=== PATIENT | female | born 1990 | race Caucasian/White ===

== ENCOUNTER 2019-11-19 21:54 | Observation (INO) | payer BC, SELFPAY ==
[2019-11-19 22:31] VITALS: BP 121/66; PULSE 89
[2019-11-19 22:46] VITALS: BP 112/72; PULSE 92
[2019-11-19 23:01] VITALS: BP 117/66; PULSE 93
[2019-11-19 23:16] VITALS: BP 125/73; PULSE 94
[2019-11-19 23:48] VITALS: BP 128/66; PULSE 84
[2019-11-20 00:01] VITALS: BP 125/70; PULSE 84
[2019-11-20 00:02] LABS: Add Urine Microscopic? YES; Appearance Urine Cloudy (Clear); Bacteria Urine 4+ /hpf; Bilirubin Urine Negative (Negative); Blood Urine Negative (Negative); Color Urine Yellow (Yellow); Glucose Urine UA Negative (Negative); Ketones Urine Trace mg/dL (Negative); Leukocyte Esterase Ur 2+ LEU/UL (NEGATIVE); Mucus Urine Rare /lpf; Nitrate Urine Negative (Negative); Protein Urine Negative (Negative); Specific Grav Ur 1.015 (1.001-1.035); Squamous Epithelial Cell Urine Many /hpf (Few); Urobilinogen Urine Negative mg/dL (<2.0)
--- NOTE | 2019-11-20 01:11 | PC.NURSE ---
pt came in c/o elevated BP at home of 160s/130s. c/o dull headache, no swelling, no blurry vision, no abdominal pain, slight nausea, slight rectal pressure. pt takes labetalol 200mg BID with last dose taken at [address] Saravia @[phone]- discussed pt sxs, discussed UA results, discussed FHT. discussed BP readings here. Per Dr. Saravia- ok to d/c home, continue current meds and f/u with Dr. Lal in office on Saturday or sooner if concerns.
--- NOTE | 2019-12-22 18:03 | P.PNOB_ITS ---
OB - Triage/Final Diagnosis Evaluation Laboratory results: Laboratory Tests 11/19/19 23:28 Urine Color Yellow Urine Appearance Cloudy H Urine pH 6.0 Ur Specific Mcdonald 1.015 Urine Protein Negative Urine Glucose (UA) Negative Urine Ketones Trace Ur Blood (Man) Negative Urine Nitrate Negative Urine Bilirubin Negative Urine Urobilinogen Negative Ur Leukocyte Esterase 2+ H Urine RBC 3-5 H Urine WBC 10-15 H Ur Squamous Epith Cells Many H Urine Bacteria 4+ H Urine Mucus Rare Final Diagnosis (1) HTN (hypertension): Code(s): I10 - Essential (primary) hypertension Status: Acute
== END 2019-11-20 00:38 | disposition home or self-care (01) ==
PROVIDERS: Admitting Provider Obstetrics & Gynecology; PCP Family Medicine; Visit Provider Obstetrics & Gynecology
DX: O16.3 Unspecified maternal hypertension, third trimester (principal); Z3A.38 38 weeks gestation of pregnancy
CPT/HCPCS: 59025; 81001; G0378; G0379

== ENCOUNTER 2019-11-24 07:23 | Outpatient (RCR) | payer BC, SELFPAY ==
[2019-10-27 08:17] VITALS: BP 142/85; PULSE 90
[2019-10-30 08:01] VITALS: BP 133/75; PULSE 91
[2019-11-03 07:48] VITALS: BP 134/80; PULSE 89
[2019-11-06 13:38] VITALS: BP 131/77; PULSE 87
[2019-11-10 07:56] VITALS: BP 139/86; PULSE 89
[2019-11-13 07:59] VITALS: BP 134/82; PULSE 85
[2019-11-17 10:55] VITALS: BP 130/81
[2019-11-24 07:48] VITALS: BP 135/82; PULSE 106
== END 2019-11-30 07:59 | disposition home or self-care (01) ==
LOC: ANHOBOP 07:23
PROVIDERS: PCP Family Medicine; Visit Provider Student in an Organized Health Care Education/Training Program
DX: O16.3 Unspecified maternal hypertension, third trimester (principal); Z3A.36 36 weeks gestation of pregnancy; O26.893 Other specified pregnancy related conditions, third trimester; R03.0 Elevated blood-pressure reading, without diagnosis of hypertension; Z3A.37 37 weeks gestation of pregnancy; Z3A.38 38 weeks gestation of pregnancy; Z3A.40 40 weeks gestation of pregnancy
CPT/HCPCS: 59025

== ENCOUNTER 2019-11-26 11:25 | Outpatient (CLI) | payer BC, SELFPAY ==
[2019-11-26 12:01] LABS: Hematocrit 36.5 % (37.0-47.0); Hemoglobin 11.7 g/dL (12.0-15.0); Mean Corpuscular HGB Conc 32.1 g/dl (32-36); Mean Corpuscular Volume 81.1 fl (80-100); Platelet Count Result 240 k/mm3 (150-375); Red Cell Distribution Width 14.1 % (11.5-14.5)
[2019-11-27 08:44] LABS: Rapid Plasma Reagin Non-Reactive (NonReactive)
== END 2019-11-26 11:26 | disposition home or self-care (01) ==
LOC: ANHLAB 11:27
PROVIDERS: PCP Family Medicine; Visit Provider Student in an Organized Health Care Education/Training Program
DX: Z01.818 Encounter for other preprocedural examination (principal)
CPT/HCPCS: 36415; 85027; 86592; 86850; 86900; 86901

== ENCOUNTER 2019-11-27 06:59 | Inpatient (IN) | payer BC, SELFPAY ==
[2019-11-27] VITALS (41 sets, daily range): BP systolic 115–157; BP diastolic 65–92; PULSE 71–103; RESP 16–18; TEMP 36.2–38; O2SAT 96–100; BMI 43.7
[2019-11-27] MEDS: LACTATED RINGERS 1,000 ML 999 ML IV CONT (08:00)
--- NOTE | 2019-11-27 08:13 | WPDANESEPPF ---
Anes - Initial Pre Proc Eval Procedure: Operation Date: 11/27/19 09:00 Proposed Procedures p Section - Herberth Lal MD Date/Time: 11/27/19 08:13 Surgeon: Herberth Lal MD Pre Op Diagnosis: C/S, macrosomia, hypertension Patient Data Age: 29 Gender: F Height: 1.68 m Weight: 123 kg Last Vital Signs Pulse 89 11/27/19 07:29 BP 115/68 11/27/19 07:29 Allergies Allergy/AdvReac Type Severity Reaction Status Date / Time No Known Allergies Allergy Unverified 09/24/18 15:42 Home Medications Medication Instructions Recorded Confirmed Type PNV cmb#95-ferrous fumarate-FA 1 tablet PO DAILY 11/06/19 11/06/19 History [] aspirin 81 mg PO BID 11/06/19 11/06/19 History ergocalciferol (vitamin D2) 50,000 unit PO WEEKLY 11/06/19 11/06/19 History [Vitamin D2] labetalol 200 mg PO Q12H 11/06/19 11/06/19 History metformin 1,000 mg PO BID 11/06/19 11/06/19 History Patient hx anesthesia problems: none Family hx anesthesia problems: none PMFSH Past Medical History Medical History (Updated 11/27/19 @ 08:14 by Dima Corona MD) Diabetes HTN (hypertension) Morbid obesity with BMI of 40.0-44.9, adult Family History Family History (Updated 11/06/19 @ 13:32 by Radha Rodriguez RN) Father Lung cancer Social History Social History Substance use: never Gender identity (if verbalized by the patient): Female Spiritual care concerns: No Anes - Eval Final PreProcedure Day of Procedure 11/27/19 08:13 Patient weight: morbidly obese Heart: regular rate and rhythm Lungs: clear to auscultation and normal air movement Airway: Mallampati scale class II Neurological: alert and oriented Last oral intake: >/= 8 hours ASA classification: III Emergent: no Anesthetic plan: proceed Anesthesia type and monitoring: general GIVS Informed Consent: The patient's anesthetic plan and its attendant risks and benefits were discussed with the patient/family/POA. Questions were solicited and answers provided to the satisfaction of the patient/family/POA.
--- NOTE | 2019-11-27 08:27 | PM.IMHP ---
H&P: HPI History of Present Illness Chief complaint: C/S, macrosomia, hypertension Narrative: Pricilla Shaffer is a 29 year old female at 39w0d who present for primary section. This is a IVF . has been complicated by CHTN, obesity, PCOS. EFW has been >99% throughout her . She has been receiving serial growth US given her CHTN. EFW earlier this week was 4900g. She endoreses good FM. She denies any regular contractions, vaginal bleeding or LOF. Review of Systems Cardiovascular: Cardiovascular: Denies chest pain, Denies leg edema, Denies palpitations, Denies dyspnea and Denies dyspnea on exertion Respiratory: Respiratory: Denies cough, Denies dyspnea and Denies dyspnea on exertion Gastrointestinal: Gastrointestinal: Denies abdominal pain, Denies constipation, Denies diarrhea, Denies nausea and Denies vomiting Genitourinary: Genitourinary: Denies hematuria, Denies urinary frequency, Denies dysuria, Denies pelvic pain, Denies urinary incontinence and Denies vaginal discharge Neurologic: Reports system reviewed and no additional complaints, except as documented Psychiatric: Psychiatric: Reports no additional psychiatric complaints Endocrine: Endocrine: Denies palpitations PMFSH Past Medical History Medical History (Updated 11/27/19 @ 08:31 by Herberth Lal MD) Diabetes HTN (hypertension) Morbid obesity with BMI of 40.0-44.9, adult Family History Family History (Updated 11/06/19 @ 13:32 by Radha Rodriguez RN) Father Lung cancer Social History Social History Substance use: never Gender identity (if verbalized by the patient): Female Spiritual care concerns: No Meds Home Medications and Allergies Home Medications Medication Instructions Recorded Confirmed Type PNV cmb#95-ferrous fumarate-FA 1 tablet PO DAILY 11/06/19 11/06/19 History [] aspirin 81 mg PO BID 11/06/19 11/06/19 History ergocalciferol (vitamin D2) 50,000 unit PO WEEKLY 11/06/19 11/06/19 History [Vitamin D2] labetalol 200 mg PO Q12H 11/06/19 11/06/19 History metformin 1,000 mg PO BID 11/06/19 11/06/19 History Allergies Allergy/AdvReac Type Severity Reaction Status Date / Time No Known Allergies Allergy Unverified 09/24/18 15:42 Vital Signs Vital Signs - 24 hr 11/27/19 07:29 Pulse Rate 89 Blood Pressure 115/68 Exam Const: General: no acute distress Eyes: EOM: EOMs intact bilaterally Neck: Neck: supple Thyroid: thyroid normal Chest: Breast/axilla inspection: normal inspection of the breasts Breast/axilla palpation: normal palpation of the breasts, normal palpation of the axillae and no axillary lymphadenopathy Resp: Effort & Inspection: normal respiratory effort Auscultation: clear to auscultation bilaterally Cardio: Rate: regular rate Rhythm: regular rhythm GI: Inspection: non-distended GI Palp: Yes Soft to palpation, No Tenderness to palpation present (GI) and No Guarding due to palpation present (GI) Auscultation: normal bowel sounds Other: Gravid, fundal height equal to dates : General: No bladder normal to palpation External Female Exam: normal external appearance Speculum Exam - Vagina: normal vaginal discharge and No vaginal bleeding Speculum Exam - Cervix: nontender Bimanual exam- vagina & uterus: No bladder normal to palpation and No Cervical tenderness present OB/external & speculum: No vaginal bleeding Skin: General skin exam: normal color and no rashes or lesions noted Neuro: Cognition (Neuro): normal cognition Speech: normal speech Extrem: General: normal to inspection and no edema Psych: Mental Status: mental status grossly normal Affect: normal affect Assessment and Plan Assessment and plan (1) Morbid obesity with BMI of 40.0-44.9, adult: Code(s): E66.01 - Morbid (severe) obesity due to excess calories; Z68.41 - Body mass index (BMI) 40.0-44.9, adult Status: Acute Assessment and Plan: given obesity
[2019-11-27] MEDS: ONDANSETRON INJ 4 MG/2 ML VIAL IV PUSH (08:49)
[2019-11-27] MEDS: LACTATED RINGERS 250 ML 999 ML IVPB (08:51)
--- NOTE | 2019-11-27 08:59 | LDADM ---
This patient, Pricilla Shaffer, was admitted to Labor/Delivery/Recovery 119 on 11/27/19 at 06:59. Plans for planned section, pain management and were discussed with patient. Patient/family oriented to hospital policies and general routines including ID bracelet, bed and alarms, visiting hours, pain management, procedures, bathroom and other care routines, personal items, smoking policy, room service/diet and guest tray routines, security routines, and visiting hours. Patient/Family are encouraged to report perceived risks to care and to ask questions if they do not understand what they are told or what they should do. See OBIX for further documentation.
[2019-11-27] MEDS: ceFAZolin 3 GM/D5W 100 ML 100 ML IVPB (09:20)
[2019-11-27 10:02] LABS: HIV 1/2 Ab P24 Ag Result Negative (Negative)
--- NOTE | 2019-11-27 10:17 | PM.PROC ---
Procedure Note - Detailed Date of procedure: 11/27/19 Pre-op diagnosis: C/S, macrosomia, hypertension raza IUP @ 39w0d CHTN on medications large for gestational age fetus obesity Post-op diagnosis: same Procedure performed: low transverse section Description of procedure: The patient was taken to the operating room where epidural anesthesia was found to be adequate. She was then prepped and draped in the usual sterile fashion in the dorsal supine position with a leftward tilt. A Pfannenstiel skin incision was then made with the scalpel and carried through to the underlying layer of fascia. The fascia was then incised in the midline and the incision extended laterally with the Hunt scissors. The superior aspect of the fascia was then grasped with the Leonides clamps, elevated, and the underlying rectus muscles dissected off bluntly and sharply. Attention was then turned to the inferior aspect of this incision which, in a similar fashion, was grasped, tented up with the Leonides clamps, and the rectus muscles dissected off both bluntly and sharply. The rectus muscles were then in the midline, and the peritoneum identified, tented up, and entered sharply with the Metzenbaum scissors. The peritoneal incision was then extended superiorly and inferiorly with good visualization of the bladder. The bladder blade was then inserted and the vesicouterine peritoneum identified, grasped with the pick-ups and entered sharply with the Metzenbaum scissors. This incision was then extended laterally and the bladder flap created digitally. The bladder blade was then reinserted and the lower uterine segment incised in a low, transverse fashion with the scalpel. The uterine incision was then extended superiorly and inferiorly. The bladder blade was removed and the infant?s head delivered atraumatically. The remainder of the was delivered atraumatically. The cord was clamped and cut. The was handed off to the waiting pediatricians (staff). Cord gasses were sent. The placenta was then removed manually, the uterus exteriorized, and cleared of all clots and debris. The uterine incision was repaired with 0 monocryl in a running fashion. A second imbricating layer of 0-monocryl suture was used. The uterus was returned to the abdomen. The uterus was then reinspected to ensure hemostasis as were all subfascial tissues. The peritoneum was re-approximated with 3-0 vicryl in a running fashion. The fascia was reapproximated with 0 vicryl in a running fashion. The subcutaneous tissue was reapproximated using 3-0 Vicryl in a running fashion. The skin was closed with 4-0 vicryl. JENY vacuum dressing was placed over the incision. The patient tolerated the procedure well. Sponge, lap and needle counts were correct times three. The patient was taken to the recovery room in stable condition. Anesthesia: spinal Surgeon: Herberth Lal MD Estimated blood loss (mL): 685 IV fluids (mL): 1,000 Urine output (mL): 150 Drains: No Packing: No Pathology: none sent Complications: No immediate complications Condition: stable Disposition: floor ( ) Findings: normal apperaing uterus, bilateral fallopian tubes and ovaries
[2019-11-27] MEDS: IBUPROFEN 600 MG TABLET PO ×2 (12:05→18:22)
--- NOTE | 2019-11-27 12:30 | PC.NURSE ---
Consulted with patient, mother reports infant eagerly latched and nursed for first feeding. Reviewed infant feeding cues, frequencies, duration of feedings, feeding elimination flow sheet, and signs of adequate intake. Demonstrated stimulation techniques to wake infant for feeding. Assisted with infant to breast. Reviewed positioning/alignment in football, holding breast in C hold and guided asymmetrical latch on. Discussed rational for each. Infant was able to latch correctly. Infant nursed eagerly, with steady draws and occasional swallowing noted. Reviewed signs of a correct latch, effective nursing and suck swallow ratio. Infant was able to maintain latch without discomfort to mother. Nipple care reviewed. Suggested to continue to hold breast during entire feeding to assist with maintaining deep latch and to stimulate to keep awake and nursing. Instructed mother to call out for RN assistance if she is unable to latch infant for feeding or she has discomfort with nursing. Instructed feeding should be initiated three hours from start of last feeding or if feeding cues are noted before. Mother voiced understanding of information shared.
--- NOTE | 2019-11-27 14:22 | PC.NURSE ---
Patient transferred to post room #288 via stretcher. Support person present. Oriented to unit, room, information board, rooming in, admission packet and security measures. Patient verbalizes understanding.
[2019-11-27] MEDS: DEXTROSE 5%/0.45% SOD CHL 1,000 ML 125 ML IV CONT (16:29)
[2019-11-27] MEDS: metFORMIN HCL 500 MG TABLET 1000 MG PO (18:22)
[2019-11-27] MEDS: LABETALOL HCL 100 MG TABLET 200 MG PO (20:48)
[2019-11-27] MEDS: LORATADINE 10 MG TABLET PO (20:52)
--- NOTE | 2019-11-27 22:20 | PC.NURSE ---
2100- Pt doing well. Up in chair with no complaints. 2214- Pt calls out because she's not feeling well. States she feels like she's going to get sick, then proceeds to pass out. Color is pale. Used ammonia to regain consciousness. Pt sweaty. Vitals done, stable. BS done-96. Good urine output. 2229- Got patient back to bed. Fundus firm at U. Moderate vaginal bleeding. Abdominal dressing dry and intact. No complaints of abdominal tenderness upon palpation. Lung sounds clear throughout. Will continue to monitor vital signs.
[2019-11-28] MEDS: IBUPROFEN 600 MG TABLET PO ×3 (04:19→20:35)
[2019-11-28 04:30] VITALS: BP 123/69; PULSE 92; RESP 16; TEMP 36.5; O2SAT 98
[2019-11-28 04:50] LABS: Glucose Point of Care 96 (65-105)
[2019-11-28 05:20] LABS: Basophils Percent Auto 0.3 % (0.2-1.2); Eosinophils Percent Auto 0.3 % (0-4.4); Hematocrit 27.2 % (37.0-47.0); Hemoglobin 8.8 g/dL (12.0-15.0); Immature Granulocyte Absolute 0.04 K/mm3 (0.00-0.031); Immature Granulocyte Percent A 0.3 % (0-0.5); Lymphocytes Absolute Auto 1.11 K/mm3 (0.9-3.2); Lymphocytes Percent Auto 9.5 % (18.3-44.2); Mean Corpuscular HGB Conc 32.4 g/dl (32-36); Mean Corpuscular Hemoglobin 26.3 pg (26-34); Mean Corpuscular Volume 81.4 fl (80-100); Mean Platelet Volume 11.6 fl (7.4-10.4); Monocytes Absolute Auto 0.7 K/mm3 (0.1-0.6); Monocytes Percent Auto 5.6 % (2.6-8.5); Neutrophils Absolute Auto 9.8 K/mm3 (1.3-6.7); Platelet Count Result 221 k/mm3 (150-375); Red Blood Count 3.34 M/mm3 (4.2-5.4); Red Cell Distribution Width 14.4 % (11.5-14.5); White Blood Count 11.7 K/mm3 (4.5-10.0)
[2019-11-28 07:30] VITALS: BP 121/78; PULSE 89; RESP 18; TEMP 36.9; O2SAT 98
[2019-11-28] MEDS: DOCUSATE SODIUM 100 MG CAPSULE PO ×2 (07:36→16:24)
[2019-11-28] MEDS: POLYSACCHARIDE IRON COMPLEX 150 MG CAPSULE PO ×2 (07:36→16:24)
[2019-11-28] MEDS: MULTIVIT/MIN/PREN/FOL AC/IRON TABLET 1 TAB PO (07:36)
[2019-11-28 07:38] VITALS: PULSE 97
[2019-11-28] MEDS: LABETALOL HCL 100 MG TABLET 200 MG PO ×2 (07:38→20:36)
[2019-11-28] MEDS: metFORMIN HCL 500 MG TABLET 1000 MG PO ×2 (07:38→18:50)
--- NOTE | 2019-11-28 08:22 | WPDANLDNPN2 ---
Anes-Prog Note L&D-Neuraxial Date/Time: 11/28/19 08:22 Neuraxial medications: intrathecal PF morphine Opiod-related complaints: none Patient feedback: Patient satisfied with post-operative pain management.
--- NOTE | 2019-11-28 08:22 | WPDANLDPN2 ---
Anes-Prog Note L&D Date/Time: 11/28/19 08:22 Comfortable throughout: section Neuraxial method: spinal Epidural/Spinal procedure site: clean & non-tender Neuro status: Neuro function grossly intact. Cardiovascular status: normal Respiratory status: normal Airway patency: baseline Mental status: baseline Post-Op hydration status: normal Vital Signs: Last Vital Signs Temp 36.5 C 11/28/19 04:30 Pulse 97 11/28/19 07:38 Resp 16 11/28/19 04:30 BP 123/69 11/28/19 04:30 Pulse Ox 98 11/28/19 04:30 I/O: Intake & Output 11/27/19 11/28/19 11/28/19 23:59 07:59 15:59 Output Total 2049 Balance -2049 Post-procedural complaints: none Patient feedback: Patient satisfied with anesthetic care.
--- NOTE | 2019-11-28 08:49 | P.PNOB_ITS ---
OB - PN: Subj Subjective Date/time seen: 11/28/19 08:49 Patient comments: no complaints and pain well controlled baby status: doing well and nursing well OB - PN: Obj Data Labs CBC & Chem 7: 11/28/19 04:28 Labs: Laboratory Results - last 24 hr 11/27/19 11/27/19 11/28/19 07:49 22:29 04:28 WBC 11.7 H RBC 3.34 L Hgb 8.8 L Hct 27.2 L MCV 81.4 MCH 26.3 MCHC 32.4 RDW 14.4 Plt Count 221 MPV 11.6 H Immature Gran % (Auto) 0.3 Neut % (Auto) 84.0 H Lymph % (Auto) 9.5 L Free[place] % (Auto) 5.6 Eos % (Auto) 0.3 Baso % (Auto) 0.3 Lymph # (Auto) 1.11 Freeborn # (Auto) 0.7 H Eos # (Auto) 0.0 Baso # (Auto) 0.0 Abs Immat Gran (auto) 0.04 H Absolute Neuts (auto) 9.8 H Absolute Nucleated RBC 0.0 Nucleated RBC % 0.0 POC Capillary Glucose 96 HIV 1&2 Ab/P24 Ag 4thGn Negative OB - PN A/P Plan day: 1 Plan: routine care Time Spent With Patient Time: Total time spent is greater than 50% in coordination of care (as documented) at patient's floor/unit and/or counseling patient: Time with patient: less than 15 minutes Review of Systems Review of Systems: All systems reviewed & are unremarkable except as noted in HPI and below Exam Const: General: no acute distress Eyes: General: appearance normal, both eyes and all related structures Neck: Neck: supple and no JVD Thyroid: thyroid normal Resp: Effort & Inspection: normal respiratory effort Auscultation: clear to auscultation bilaterally Cardio: Rate: regular rate Rhythm: regular rhythm GI: Inspection: non-distended GI Palp: Yes Soft to palpation, No Tenderness to palpation present (GI) and No Guarding due to palpation present (GI) Auscultation: normal bowel sounds : General: Yes bladder normal to palpation External Female Exam: normal external appearance Speculum Exam - Vagina: normal vaginal discharge and No vaginal bleeding Speculum Exam - Cervix: nontender Bimanual exam- vagina & uterus: bladder normal to palpation and No Cervical tenderness present OB/external & speculum: No vaginal bleeding Skin: General skin exam: no rashes or lesions noted Extrem: General: normal to inspection and no edema Psych: Mental Status: mental status grossly normal Affect: normal affect
--- NOTE | 2019-11-28 08:49 | WPDOBCIRC ---
OB [place] - Circumcision Consent: Potential risks, benefits, and alternatives have been discussed and questions answered. Family agrees to proceed with circumcision. Preoperative Diagnosis: Normal Foreskin. Postoperative Diagnosis: Normal Foreskin. Date of Circumcision: 11/28/19 Time of Circumcision: 09:00 Type of Circumcision: GOMCO with 1.3 Anesthesia: None Foreskin: The foreskin was examined and found to be grossly normal. Estimated Blood Loss: Minimal
[2019-11-28 16:22] VITALS: BP 117/73; PULSE 93; RESP 16; TEMP 37.3; O2SAT 97
[2019-11-28 20:30] VITALS: BP 122/70; PULSE 93; RESP 16; TEMP 36.9; O2SAT 100
[2019-11-28 20:36] VITALS: PULSE 93
--- NOTE | 2019-11-29 01:57 | PC.NURSE ---
Daylight Savings Time For Daylight Savings Time Beginning in the Spring - Clocks are moved ahead. For [facility], the time of change occurs at 0200 hrs. Time is taken from the geophysical observer. This entry on the patient's chart recognizes the change in time reflected during documentation. Example: 2 entries for vital signs may be charted for 0200 hrs.
--- NOTE | 2019-11-29 07:21 | PM.OBPNVD ---
OB - PN: Subj Subjective Date/time seen: 11/29/19 07:21 Patient comments: no complaints and pain well controlled baby status: doing well and nursing well OB - PN: Obj Data Labs CBC & Chem 7: 11/28/19 04:28 OB - PN A/P Plan day: 2 Plan: routine care, discharge home and follow up 6 weeks (1 week) Time Spent With Patient Time: Total time spent is greater than 50% in coordination of care (as documented) at patient's floor/unit and/or counseling patient: Time with patient: less than 15 minutes Review of Systems Review of Systems: All systems reviewed & are unremarkable except as noted in HPI and below Exam Const: General: no acute distress Eyes: General: appearance normal, both eyes and all related structures Neck: Neck: supple and no JVD Thyroid: thyroid normal Resp: Effort & Inspection: normal respiratory effort Auscultation: clear to auscultation bilaterally Cardio: Rate: regular rate Rhythm: regular rhythm GI: Inspection: normal to inspection and incision (cdi) Percussion: Yes tympanic to percussion Auscultation: normoactive bowel sounds : General: Yes bladder normal to palpation External Female Exam: normal external appearance Speculum Exam - Vagina: normal vaginal discharge and No vaginal bleeding Speculum Exam - Cervix: nontender Bimanual exam- vagina & uterus: bladder normal to palpation and No Cervical tenderness present OB/external & speculum: No vaginal bleeding Skin: General skin exam: no rashes or lesions noted Extrem: General: normal to inspection and no edema Psych: Mental Status: mental status grossly normal Affect: normal affect
[2019-11-29 07:45] VITALS: BP 127/80; PULSE 80; RESP 14; TEMP 36.8; O2SAT 100
[2019-11-29] MEDS: metFORMIN HCL 500 MG TABLET 1000 MG PO (07:56)
[2019-11-29] MEDS: IBUPROFEN 600 MG TABLET PO ×2 (07:59→13:26)
[2019-11-29 08:00] VITALS: PULSE 88
[2019-11-29] MEDS: LABETALOL HCL 100 MG TABLET 200 MG PO (08:00)
[2019-11-29] MEDS: DOCUSATE SODIUM 100 MG CAPSULE PO (08:01)
[2019-11-29] MEDS: MULTIVIT/MIN/PREN/FOL AC/IRON TABLET 1 TAB PO (08:01)
[2019-11-29] MEDS: POLYSACCHARIDE IRON COMPLEX 150 MG CAPSULE PO (08:01)
--- NOTE | 2019-11-29 14:21 | PM.OBDSVD ---
DS: Diagnosis Admitting Diagnosis Admitting Diagnosis: Encounter for supervision of normal , unspecified, third trimester OB - DS: Summary OB Procedures : None OB Procedures Intrapartum: OB Procedures: : None Peripartum Data Infant Delivery Method: Section Procedures: Procedures Operation Date: 11/27/19 09:00 Actual Procedures Side Surgeon p Section Not Applicable Herberth Lal MD complications: none Status at Discharge Functional status at discharge: independent ambulation Overall status at discharge: patient is progressing back to baseline Time Spent with Patient Time attestation: Total time spent providing and/or coordinating discharge services: Time spent: Less than 30 minutes Exam Const: General: comfortable and no acute distress Resp: Effort & Inspection: normal respiratory effort Auscultation: clear to auscultation bilaterally Cardio: Rate: regular rate GI: Inspection: non-distended GI Palp: Yes Soft to palpation, No Firmness to palpation present (GI), Yes Tenderness to palpation present (GI) (mild tenderness over incision ) and No Guarding due to palpation present (GI) Auscultation: normal bowel sounds Psych: Appearance: grossly normal Mental Status: mental status grossly normal Discharge Plan Discharge Attending physician on discharge: Herberth Lal Consulting providers: Dima Corona Discharging Clinician: Caesar Castro Patient Disposition: Home, Self-Care Activity: may shower, no straining, may drive after 2 weeks and pelvic rest Diet: heart healthy Wound Care Instructions: follow printed instructions Discharge Instructions: Education: Mom and Baby Guide Given to: Mother Follow-Up: Call your delivering provider's office for an appointment to be seen in: 1 Week Mom and baby should come to the [facility] for the follow-up appointment. Appointment Date/Time: November 30, 2019 at 8:00 am What to expect at your follow-up visit: Blood Pressure Check Physical Assessment Call [phone] if you are unable to keep your appointment time. BREAST CARE: 1. Wear a snug supportive bra. 2. For engorgement discomfort: Breast Feeding: A. Apply warm moist washcloths B. Express milk as needed to relieve engorgement C. Wear loose clothing Bottle Feeding: A. May apply ice packs 3. For sore nipples: A. Identify correct latch-on B. Apply warm moist washcloths before and after nursing C. Air dry nipples after nursing D. May apply Lansinoh cream to nipples ABDOMINAL INCISION: (if applicable) 1. Keep dressing on until seen by on 12-04-2019 2. Do NOT use lotions for powders on your incision 3. When showering, allow soap and water to run over the dressing, but do not wash incision EPISIOTOMY/PERINEAL CARE: 1. Until bleeding stops, use your ramos bottle after urinating 2. Change your pad frequently throughout the day 3. No tub baths until seen by your physician - You may shower ACTIVITY: 1. Rest as much as possible. 2. Do not exercise or lift anything heavier than your baby (such as laundry or other children.) 3. Avoid stairs or driving as much as possible. 4. Do not put anything into the vagina. No douching, tampons, or sexual activity until seen by physician. NOTIFY PHYSICIAN IF YOU HAVE ANY QUESTIONS OR IF ANY OF THE FOLLOWING SYMPTOMS OCCUR: 1. If your incision becomes red, swollen, or more painful than what you have experienced in the hospital. 2. If your vaginal bleeding becomes foul smelling. 3. If your vaginal bleeding becomes more heavy than a period or if your bleeding changes from pink to bright red. However, you may pass an occasional walnut-sized clot once or twice for the first week . 4. If you experience a sharp, shooting pain in you calves. 5. If you discover a
--- NOTE | 2019-11-29 19:37 | PC.NURSE ---
1330 discharge papers for mother and baby reviewed with parents; mother signed discharge papers.
== END 2019-11-29 14:25 | disposition home or self-care (01) | DRG 788 ==
LOC: ANHLDR 09:37 → ANHOB2 11-29 07:20 → ANHLDR 11-30 20:34 → ANHOB2 11-30 20:34
PROVIDERS: Admitting Provider Student in an Organized Health Care Education/Training Program; PCP Family Medicine; Visit Provider Obstetrics & Gynecology
PROC: 10D00Z1 Extraction of Products of Conception, Low, Open Approach (ICD-10-PCS; CPT 59514; principal; 2019-11-27 09:00)
DX: O10.92 Unspecified pre-existing hypertension complicating childbirth (principal); O99.214 Obesity complicating childbirth; E66.01 Morbid (severe) obesity due to excess calories; E11.9 Type 2 diabetes mellitus without complications; O77.0 Labor and delivery complicated by meconium in amniotic fluid; O36.63X0 Maternal care for excessive fetal growth, third trimester, not applicable or unspecified; Z79.84 Long term (current) use of oral hypoglycemic drugs; Z37.0 Single live birth; Z3A.39 39 weeks gestation of pregnancy
CPT/HCPCS: 36415; 85025; 86703; A9270; G0432; J0131; J0690; J1885; J2274; J2405; J2590; J2704; J3010; J7120

== ENCOUNTER 2021-03-02 10:49 | Outpatient (CLI) | payer BC, SELFPAY ==
[2021-03-02 11:15] VITALS: BP 140/85; PULSE 90
[2021-03-02 11:30] VITALS: BP 135/82; PULSE 87
[2021-03-02 11:33] LABS: Basophils Percent Auto 0.3 % (0.2-1.2); Eosinophils Absolute Auto 0.1 K/mm3 (0-0.3); Hematocrit 34.5 % (37.0-47.0); Hemoglobin 11.4 g/dL (12.0-15.0); Immature Granulocyte Absolute 0.02 K/mm3 (0.00-0.031); Immature Granulocyte Percent A 0.3 % (0-0.5); Lymphocytes Absolute Auto 1.41 K/mm3 (0.9-3.2); Lymphocytes Percent Auto 22.6 % (18.3-44.2); Mean Corpuscular Hemoglobin 27.1 pg (26-34); Mean Corpuscular Volume 82.1 fl (80-100); Mean Platelet Volume 10.6 fl (7.4-10.4); Monocytes Absolute Auto 0.4 K/mm3 (0.1-0.6); Monocytes Percent Auto 6.7 % (2.6-8.5); Neutrophils Absolute Auto 4.3 K/mm3 (1.3-6.7); Neutrophils Percent Auto 69.1 % (45.5-73.1); Platelet Count Result 204 k/mm3 (150-375); Red Cell Distribution Width 13.4 % (11.5-14.5); White Blood Count 6.2 K/mm3 (4.5-10.0)
[2021-03-02 11:45] VITALS: BP 133/87; PULSE 87
[2021-03-02 11:58] LABS: Alanine Aminotransferase 11 U/L (4-35); Albumin Level 3.8 g/dL (3.5-5.1); Alkaline Phosphatase 83 U/L (38-126); Anion Gap 12 mmol/L (8-16); Aspartate Amino Transferase 21 U/L (14-36); Bilirubin,Total 0.3 mg/dL (0.2-1.3); Blood Urea Nitrogen 5 mg/dL (7-17); Calcium 9.3 mg/dL (8.4-10.2); Carbon Dioxide 18 mmol/L (22-30); Chloride 107 mmol/L (98-107); Estimated Glomerular Filt Rate > 60; Glucose 87 mg/dL (65-105); Potassium 3.9 mmol/L (3.4-5.0); Sodium 137 mmol/L (137-145); Uric Acid 3.7 mg/dL (2.5-7.5)
[2021-03-02 12:00] VITALS: BP 143/88; PULSE 84
[2021-03-02 12:06] LABS: Add Urine Microscopic? YES; Appearance Urine Cloudy (Clear); Bacteria Urine Trace /hpf; Bilirubin Urine Negative (Negative); Blood Urine Negative (Negative); Color Urine Amber (Yellow); Glucose Urine UA Negative (Negative); Ketones Urine Trace mg/dL (Negative); Leukocyte Esterase Ur 1+ LEU/UL (NEGATIVE); Mucus Urine Heavy /lpf; Nitrate Urine Negative (Negative); Protein Urine 2+ mg/dL (Negative); Specific Grav Ur 1.028 (1.001-1.035); Squamous Epithelial Cell Urine Many /hpf (Few); Transitional Epi Cells Urine Rare /hpf (None Seen)
[2021-03-02 12:11] LABS: Total Protein Urine Random 10 mg/dL
[2021-03-02 12:31] LABS: Creatinine Urine 388.1 mg/dL; Ur Ttl Prot Creatinine Ratio 0.03 mg/mg (0-0.20)
--- NOTE | 2021-03-02 12:43 | PC.NURSE ---
1215- Spoke with Dr. Lal, orders to discharge to home.
== END 2021-03-02 12:20 | disposition home or self-care (01) ==
LOC: ANHOBOP 10:56 → ANHLDR 10:57
PROVIDERS: PCP Family Medicine; Visit Provider Student in an Organized Health Care Education/Training Program
DX: O13.5 Gestational [pregnancy-induced] hypertension without significant proteinuria, complicating the puerperium (principal)
CPT/HCPCS: 36415; 59025; 80053; 81001; 82570; 84156; 84550; 85025; 87086; 99199

== ENCOUNTER 2021-03-28 11:08 | Outpatient (CLI) | payer BC, SELFPAY ==
[2021-03-28 12:01] VITALS: BP 139/82; PULSE 86
[2021-03-28 12:02] LABS: Basophils Percent Auto 0.1 % (0.2-1.2); Eosinophils Absolute Auto 0.1 K/mm3 (0-0.3); Eosinophils Percent Auto 0.9 % (0-4.4); Hematocrit 34.3 % (37.0-47.0); Hemoglobin 11.2 g/dL (12.0-15.0); Immature Granulocyte Absolute 0.03 K/mm3 (0.00-0.031); Immature Granulocyte Percent A 0.4 % (0-0.5); Lymphocytes Absolute Auto 1.22 K/mm3 (0.9-3.2); Lymphocytes Percent Auto 17.3 % (18.3-44.2); Mean Corpuscular HGB Conc 32.7 g/dl (32-36); Mean Corpuscular Hemoglobin 26.7 pg (26-34); Mean Corpuscular Volume 81.7 fl (80-100); Mean Platelet Volume 11.1 fl (7.4-10.4); Monocytes Absolute Auto 0.5 K/mm3 (0.1-0.6); Monocytes Percent Auto 7.2 % (2.6-8.5); Neutrophils Absolute Auto 5.2 K/mm3 (1.3-6.7); Neutrophils Percent Auto 74.1 % (45.5-73.1); Platelet Count Result 204 k/mm3 (150-375); Red Cell Distribution Width 13.5 % (11.5-14.5); White Blood Count 7.1 K/mm3 (4.5-10.0)
[2021-03-28 12:13] LABS: Alanine Aminotransferase 10 U/L (4-35); Albumin Level 3.8 g/dL (3.5-5.1); Alkaline Phosphatase 110 U/L (38-126); Anion Gap 11 mmol/L (8-16); Aspartate Amino Transferase 20 U/L (14-36); Bilirubin,Total 0.5 mg/dL (0.2-1.3); Blood Urea Nitrogen 4 mg/dL (7-17); Carbon Dioxide 19 mmol/L (22-30); Chloride 104 mmol/L (98-107); Estimated Glomerular Filt Rate > 60; Glucose 92 mg/dL (65-105); Potassium 3.8 mmol/L (3.4-5.0); Sodium 134 mmol/L (137-145); Uric Acid 3.6 mg/dL (2.5-7.5)
[2021-03-28 12:16] VITALS: BP 136/83; PULSE 88
--- NOTE | 2021-03-28 12:23 | PC.NURSE ---
Called Dr. Lal with lab results and BPs. January D/C home. Follow up on with NST and early next week in office.
== END 2021-03-28 12:30 | disposition home or self-care (01) ==
LOC: ANHOBOP 11:13 → ANHOBPP 11:14
PROVIDERS: PCP Family Medicine; Visit Provider Student in an Organized Health Care Education/Training Program
DX: O13.9 Gestational [pregnancy-induced] hypertension without significant proteinuria, unspecified trimester (principal); Z3A.00 Weeks of gestation of pregnancy not specified
CPT/HCPCS: 36415; 59025; 80053; 84550; 85025; 99199

== ENCOUNTER 2021-03-30 14:01 | Outpatient (RCR) | payer BC, SELFPAY ==
[2021-03-09 11:17] VITALS: BP 136/85; PULSE 91
[2021-03-22 13:05] VITALS: BP 133/84; PULSE 89
--- NOTE | ~2021-03-30 | US_ITS ---
US OB limited w BPP DATE: 03/30/2021 14:50 INDICATION: Hypertension TECHNIQUE: Real-time imaging and Doppler analysis COMPARISON: None FINDINGS: Live raza intrauterine gestation, fetus in longitudinal lie, vertex presentation, with heart rate of 144 bpm. Anterior placenta. Amniotic fluid index measures 8.9 cm, within lower limits of normal. (5th percentile BLANCA: 7.5 cm; 95t h percentile BLANCA: 24.4 cm) BIOPHYSICAL PROFILE reported by it field technician: breathin out of 2 movement: 2 out of 2 tone: 2 out of 2 Amniotic fluid pocket: 2 out of 2 Total score: 8 out of 8 IMPRESSION: Normal biophysical profile score of 8 out of 8 Reviewed, dictated and finalized at [facility]. Reviewed, dictated and finalized at [facility].
[2021-03-30 15:21] VITALS: BP 132/81; PULSE 88
== END 2021-04-06 09:54 | disposition home or self-care (01) ==
LOC: ANHOBOP 14:01
PROVIDERS: PCP Family Medicine; Visit Provider Student in an Organized Health Care Education/Training Program
DX: O16.3 Unspecified maternal hypertension, third trimester (principal); Z3A.34 34 weeks gestation of pregnancy; Z3A.35 35 weeks gestation of pregnancy; Z3A.37 37 weeks gestation of pregnancy
CPT/HCPCS: 59025; 76815; 76819

== ENCOUNTER 2021-04-04 14:11 | Outpatient (CLI) | payer BC, SELFPAY ==
[2021-04-04 14:47] LABS: Hematocrit 33.9 % (37.0-47.0); Hemoglobin 11.1 g/dL (12.0-15.0); Mean Corpuscular HGB Conc 32.7 g/dl (32-36); Mean Corpuscular Hemoglobin 26.8 pg (26-34); Mean Corpuscular Volume 81.9 fl (80-100); Mean Platelet Volume 10.8 fl (7.4-10.4); Platelet Count Result 211 k/mm3 (150-375); Red Blood Count 4.14 M/mm3 (4.2-5.4); Red Cell Distribution Width 13.7 % (11.5-14.5); White Blood Count 5.4 K/mm3 (4.5-10.0)
[2021-04-05 10:31] LABS: Rapid Plasma Reagin Non-Reactive (NonReactive)
== END 2021-04-04 14:12 | disposition home or self-care (01) ==
LOC: ANHLAB 14:16
PROVIDERS: PCP Family Medicine; Visit Provider Student in an Organized Health Care Education/Training Program
DX: Z01.818 Encounter for other preprocedural examination (principal)
CPT/HCPCS: 36415; 85027; 86592; 86850; 86900; 86901

== ENCOUNTER 2021-04-06 07:07 | Inpatient (IN) | payer BC, SELFPAY ==
--- NOTE | 2021-04-05 13:51 | PM.IMHP ---
H&P: HPI History of Present Illness Date/Time: 04/05/21 13:51 30 yo at 38w0d who presents for repeat section. is complicated by CHTN on labetalol. Pt also had a history of PCOS and infertility. This is an IVF . Pt had prior section for macrosomia. Chief Complaint: intrauterin at term prior CHTN IVF Review of Systems Review of Systems: All systems reviewed & are unremarkable except as noted in HPI and below Cardiovascular: Cardiovascular: Denies chest pain, Denies leg edema, Denies palpitations, Denies dyspnea and Denies dyspnea on exertion Respiratory: Respiratory: Denies cough, Denies dyspnea and Denies dyspnea on exertion Gastrointestinal: Gastrointestinal: Denies abdominal pain, Denies constipation, Denies diarrhea, Denies nausea and Denies vomiting Genitourinary: Genitourinary: Denies hematuria, Denies urinary frequency, Denies dysuria, Denies pelvic pain, Denies urinary incontinence and Denies vaginal discharge Neurologic: Reports system reviewed and no additional complaints, except as documented Psychiatric: Psychiatric: Reports no additional psychiatric complaints Endocrine: Endocrine: Denies palpitations [facility] Past Medical History Medical History (Updated 04/05/21 @ 14:00 by Herberth Lal MD) Diabetes HTN (hypertension) Morbid obesity with BMI of 40.0-44.9, adult Family History Family History Father Lung cancer Social History Social History Smoking status: Never smoker Substance use: never Gender identity (if verbalized by the patient): Female Spiritual care concerns: No Meds Home Medications and Allergies Home Medications Medication Instructions Recorded Confirmed Type PNV cmb#95-ferrous fumarate-FA 1 tablet PO DAILY 11/06/19 03/02/21 History [] aspirin 81 mg PO BID 11/06/19 03/30/21 History ergocalciferol (vitamin D2) 50,000 unit PO WEEKLY 11/06/19 03/30/21 History [Vitamin D2] labetalol 200 mg PO Q8H 11/06/19 03/30/21 History Allergies Allergy/AdvReac Type Severity Reaction Status Date / Time No Known Allergies Allergy Unverified 09/24/18 15:42 Exam Const: General: no acute distress Eyes: EOM: EOMs intact bilaterally Neck: Neck: supple Thyroid: thyroid normal Chest: Breast/axilla inspection: normal inspection of the breasts Breast/axilla palpation: normal palpation of the breasts, normal palpation of the axillae and no axillary lymphadenopathy Resp: Effort & Inspection: normal respiratory effort Auscultation: clear to auscultation bilaterally Cardio: Rate: regular rate Rhythm: regular rhythm GI: Inspection: non-distended and other (Gravid) GI Palp: Yes Soft to palpation, No Tenderness to palpation present (GI) and No Guarding due to palpation present (GI) Auscultation: normal bowel sounds : General: No bladder normal to palpation External Female Exam: normal external appearance Speculum Exam - Vagina: normal vaginal discharge and No vaginal bleeding Speculum Exam - Cervix: nontender Bimanual exam- vagina & uterus: No bladder normal to palpation, No Cervical tenderness present and enlarged (Gravid) OB/external & speculum: No vaginal bleeding Skin: General skin exam: normal color and no rashes or lesions noted Neuro: Cognition (Neuro): normal cognition Speech: normal speech Extrem: General: normal to inspection and no edema Psych: Mental Status: mental status grossly normal Affect: normal affect Assessment and Plan Assessment and plan (1) History of section complicating : Code(s): O34.219 - Maternal care for unspecified type scar from previous delivery Status: Acute Assessment and Plan: prior low transverse x1 (2) Supervision of high risk , unspecified, third trimester: Code(s): O09.93 - Supervision of high risk pregn
[2021-04-06] VITALS (68 sets, daily range): BP systolic 82–154; BP diastolic 35–97; PULSE 61–139; RESP 12–20; TEMP 36.1–37.1; O2SAT 94–100; BMI 45.8
--- NOTE | 2021-04-06 06:58 | P.PNAN_ITS ---
Anes - Initial Pre Proc Eval Procedure: Operation Date: 04/06/21 09:00 Proposed Procedures p Repeat Section - Herberth Lal MD Date/Time: 04/06/21 06:58 Surgeon: Herberth Lal MD Pre Op Diagnosis: c/s Patient Data Age: 30 Gender: F Height: Weight: Allergies Allergy/AdvReac Type Severity Reaction Status Date / Time No Known Allergies Allergy Unverified 09/24/18 15:42 Home Medications Medication Instructions Recorded Confirmed Type PNV cmb#95-ferrous fumarate-FA 1 tablet PO DAILY 11/06/19 03/02/21 History [] aspirin 81 mg PO BID 11/06/19 03/30/21 History ergocalciferol (vitamin D2) 50,000 unit PO WEEKLY 11/06/19 03/30/21 History [Vitamin D2] labetalol 200 mg PO Q8H 11/06/19 03/30/21 History Patient hx anesthesia problems: none Family hx anesthesia problems: none [facility] Past Medical History Medical History (Updated 04/06/21 @ 08:35 by Diomedes Ordoñez DO) HTN (hypertension) Morbid obesity with BMI of 40.0-44.9, adult Family History Family History Father Lung cancer Social History Social History Smoking status: Never smoker Second hand tobacco smoke exposure: No Substance use: never Gender identity (if verbalized by the patient): Female Spiritual care concerns: No Anes - Eval Final PreProcedure Day of Procedure 04/06/21 06:58 Patient weight: morbidly obese Heart: regular rate and rhythm Lungs: clear to auscultation and normal air movement Airway: Mallampati scale class II Neurological: alert and oriented Last oral intake: >/= 8 hours ASA classification: III Emergent: no Anesthetic plan: proceed Anesthesia type and monitoring: regional spinal and standard monitoring Informed Consent: The patient's anesthetic plan and its attendant risks and benefits were discussed with the patient/family/POA. Questions were solicited and answers provided to the satisfaction of the patient/family/POA.
--- NOTE | 2021-04-06 07:29 | WPDHPUPDATE1 ---
History and Physical Update Update Date/Time: 04/06/21 07:29 History and Physical has been reviewed, including an updated exam of the patient. There are NO changes in the patient's condition. Risks, benefits, and alternatives have been discussed and questions answered. Patient agrees to proceed with procedure.
[2021-04-06] MEDS: LACTATED RINGERS 1,000 ML 125 ML IV CONT (07:51)
--- NOTE | 2021-04-06 07:59 | LDADM ---
This patient, Pricilla Shaffer, was admitted to Labor/Delivery/Recovery 119 on 04/06/21 at 07:07. Plans for labor, pain management and were discussed with patient. Patient/family oriented to hospital policies and general routines including ID bracelet, bed and alarms, visiting hours, pain management, procedures, bathroom and other care routines, personal items, smoking policy, room service/diet and guest tray routines, infant security routines, and visiting hours. Patient/Family are encouraged to report perceived risks to care and to ask questions if they do not understand what they are told or what they should do. See OBIX for further documentation.
[2021-04-06] MEDS: ceFAZolin 3 GM/D5W 100 ML 100 ML IVPB (08:53)
[2021-04-06 09:25] LABS: Rubella IgG Antibody 76.8 IU/ML
[2021-04-06] MEDS: KETOROLAC 30 MG/ML VIAL (*BKC) IV PUSH ×2 (09:40→13:25)
--- NOTE | 2021-04-06 10:13 | W.PM.PROC2 ---
Procedure Note - Detailed Date of Procedure 04/08/21 Pre-op Diagnosis c/s Post-op Diagnosis same Procedure Performed low transverse section Surgeon Herberth Lal MD Anesthesia spinal and epidural Description of Procedure The patient was taken to the operating room. A combined spinal epidural anesthesic was administered and found to be adequate at a t-10 level. The patient was placed in a supine position with a slight left lateral tilt. A jimenez catheter was placed with return of clear urine. A Bovie grounding pad was placed. Surgical prep was performed and surgical drapes were placed. A surgical time out was performed. A Pfannenstiel skin incision was then made with the scalpel and carried through to the underlying layer of fascia. The fascia was then incised in the midline and the incision was extended laterally with the Hunt scissors. The superior aspect of the fascia was then grasped with the Leonides clamps, elevated, and the underlying rectus muscles dissected off bluntly and sharply. Attention was then turned to the inferior aspect of this incision which, in a similar fashion, was grasped, tented up with the Leonides clamps, and the rectus muscles dissected off both bluntly and sharply. The rectus muscles were then in the midline. The peritoneum was adherent to the rectus muscles with abundent scar tissue. The peritoneum was identified and entered bluntly and dissected off the rectus muscles with Bovie cautery.. The peritoneal incision was then extended superiorly and inferiorly with good visualization of the bladder. The vesico-uterine serosa was identified and dissected to create a bladder flap. The bladder blade was reinserted. The uterus was inspected for rotation. A low-transverse uterine incision was made sharply with the scalpel and entry was made into the uterine cavity. An amniotomy was made and copious amounts of clear fluid were noted on return. The uterine incision was extended laterally bluntly. The bladder blade was removed. The fetus was noted to be cephalic with spine to maternal left. Due to this position, the head was difficult to deliver with fundal pressure. A kiwi vacuum was placed an the head approximately 2cm anterior to the posterior fontanelle. The Kiwi vacuum popped off 2 times while attempting to deliver the fetus. A third attempt was tried since there were no forceps immediately available. The fetus was delivered atruamatically with the 3rd attempt. The umbilical cord was clamped twice and cut. The was handed off to the waiting staff. A second segment of umbilical cord was clamped and cut for cord blood gasses. Cord blood was collected for determination of the blood type and for direct Phelps. The placenta was delivered spontaneously without difficulty. The placenta appeared grossly normal and complete. The uterus was exteriorized and cleared of all clots and debris. The uterine incision was repaired using 0-monocryl suture in a running fashion. A second layer of 0 Monocryl suture was used in an imbricating fashion to obtain excellent hemostasis and uterine strength. The uterine closure was inspected for hemostasis. The posterior aspect of the uterus and the broad ligaments were inspected and the posterior cul-de-sac cleared of fluid and blood clots. The uterine closure was again inspected and hemaderm was applied to the hysterotomy for added hemostasis. The uterus was returned to the abdominal cavity. The pericolic gutters were inspected and were cleared of all blood clots and debris. The uterine closure was then re inspected to ensure hemostasis as were all subfascial tissues. The peritoneum was closed using 3-0 vicryl in a running fashion. The fascia was reapproximated with 0-vicryl in a running fashion. The subcutaneous tissue was irrigated and hemostasis achieved with electrocautery. It was reapproximated with 3-0 vicryl in a running fashion. The skin was closed with 4-0 vicryl
[2021-04-06] MEDS: OXYTOCIN 30 UNITS/NS 500 ML 30 UNITS/500 ML BAG 125 UNITS IV CONT (10:43)
[2021-04-06] MEDS: MORPHINE SULFATE (*CRX) 2 MG/ML INJ IV PUSH (11:40)
--- NOTE | 2021-04-06 15:00 | PC.NURSE ---
Mother called out for assist with feeding. Infant is unable to thrust tongue past gum ridge both lips are able to flange. Infant is very congested and mouth breathing is noted. Skin is intact on both nipples, no redness and bruising noted. Reviewed infant feeding cues, frequencies, duration of feedings, feeding elimination flow sheet, and signs of adequate intake. Demonstrated stimulation techniques to wake infant for feeding. Assisted with infant to breast. Reviewed positioning/alignment in cross cradle, holding breast in ?U? hold and guided asymmetrical latch on. Discussed rational for each. is unable to latch correctly. makes eager attempts and will latch with short bursts of suckling and will pull back with congestion noted. Mother will supplement this feeding and initiate pumping. Discussed ICP will evaluate tongue for possible frenulectomy. Mother wishes to have procedure done as soon as possible.
[2021-04-06] MEDS: KCL 20 MEQ/D5/0.45% SOD CHL 1,000 ML 125 ML IV CONT (15:21)
[2021-04-07] VITALS: BP 141/80; PULSE 99; RESP 18; TEMP 36.5; O2SAT 99
[2021-04-07] MEDS: IBUPROFEN 600 MG TABLET PO ×2 (03:33→10:17)
[2021-04-07] MEDS: HYDROcodone/acetaminophen (*CRX) 5-325 MG TABLET 1 TAB PO ×2 (03:33→10:17)
[2021-04-07 03:41] VITALS: BP 133/68; PULSE 91; RESP 18; TEMP 36.5; O2SAT 99
[2021-04-07 04:52] LABS: Basophils Percent Auto 0.1 % (0.2-1.2); Eosinophils Percent Auto 0.5 % (0-4.4); Hematocrit 24.8 % (37.0-47.0); Hemoglobin 7.9 g/dL (12.0-15.0); Immature Granulocyte Absolute 0.02 K/mm3 (0.00-0.031); Immature Granulocyte Percent A 0.3 % (0-0.5); Lymphocytes Absolute Auto 1.15 K/mm3 (0.9-3.2); Lymphocytes Percent Auto 15.1 % (18.3-44.2); Mean Corpuscular HGB Conc 31.9 g/dl (32-36); Mean Corpuscular Hemoglobin 27.1 pg (26-34); Mean Corpuscular Volume 84.9 fl (80-100); Mean Platelet Volume 11.5 fl (7.4-10.4); Monocytes Absolute Auto 0.7 K/mm3 (0.1-0.6); Monocytes Percent Auto 8.7 % (2.6-8.5); Neutrophils Absolute Auto 5.7 K/mm3 (1.3-6.7); Neutrophils Percent Auto 75.3 % (45.5-73.1); Platelet Count Result 184 k/mm3 (150-375); Red Blood Count 2.92 M/mm3 (4.2-5.4); White Blood Count 7.6 K/mm3 (4.5-10.0)
--- NOTE | 2021-04-07 08:23 | P.PNOB_ITS ---
OB - PN: Subj Subjective Date/time seen: 04/07/21 08:23 Patient comments: no complaints, pain well controlled and tolerating diet OB - PN: Obj Data Labs CBC & Chem 7: 04/07/21 03:32 Labs: Laboratory Results - last 24 hr 04/06/21 04/07/21 07:39 03:32 WBC 7.6 RBC 2.92 L Hgb 7.9 L D Hct 24.8 L MCV 84.9 MCH 27.1 MCHC 31.9 L RDW 14.0 Plt Count 184 MPV 11.5 H Immature Gran % (Auto) 0.3 Neut % (Auto) 75.3 H Lymph % (Auto) 15.1 L [place] % (Auto) 8.7 H Eos % (Auto) 0.5 Baso % (Auto) 0.1 L Lymph # (Auto) 1.15 [place] # (Auto) 0.7 H Eos # (Auto) 0.0 Baso # (Auto) 0.0 Abs Immat Gran (auto) 0.02 Absolute Neuts (auto) 5.7 Absolute Nucleated RBC 0.0 Nucleated RBC % 0.0 Rubella IgG Antibody 76.8 OB - PN A/P Plan day: 1 Plan: routine care Comments: patient doing well H/H 7.924, pt asymptomatic, will repeat CBC in AM, discussed potential for RBC transfusion afebrile, VSS BP nl to mild overnight, will hold on labetalol at this time. pt to follow up outpatient in 1 wk for BP check incision covered with JENY dressing, jeny underneath jimenez removed, voiding spontaneously continue routine post op care plan for circumcision today, risks, benefits, alternatives discussed. parents consent for circumcision. Time Spent With Patient Time: Total time spent is greater than 50% in coordination of care (as documented) at patient's floor/unit and/or counseling patient: Time with patient: less than 15 minutes Review of Systems Constitutional: Constitutional: Reports no additional constitutional complaints Cardiovascular: Cardiovascular: Reports no additional cardiovascular complaints Respiratory: Respiratory: Reports no additional respiratory complaints Gastrointestinal: Gastrointestinal: Reports no additional gastrointestinal complaints Genitourinary: Genitourinary: Reports no additional female genitourinary complaints Exam Const: General: comfortable and no acute distress Resp: Effort & Inspection: normal respiratory effort Auscultation: clear to auscultation bilaterally Cardio: Rate: regular rate GI: GI Palp: Yes Soft to palpation, Yes Tenderness to palpation present (GI) (around incision ) and No Guarding due to palpation present (GI) Auscultation: normal bowel sounds Other: incision covered with JENY dressing Psych: Appearance: grossly normal Mental Status: mental status grossly normal Affect: normal affect
--- NOTE | 2021-04-07 08:25 | PM.OBDSVD ---
DS: Admitting Diagnosis Admitting Diagnosis Admitting Diagnosis: intrauterine at term prior GHTN OB - DS: Summary OB Procedures : None OB Procedures Intrapartum: OB Procedures: : None Peripartum Data Delivery Method: Section Procedures: Procedures Operation Date: 04/06/21 09:00 Actual Procedure Side Surgeon p Section Herberth Lal MD complications: none Status at Discharge Functional status at discharge: independent ambulation Overall status at discharge: patient is progressing back to baseline Time Spent with Patient Time attestation: Total time spent providing and/or coordinating discharge services: Time spent: Less than 30 minutes Exam Const: General: comfortable and no acute distress Resp: Effort & Inspection: normal respiratory effort Auscultation: clear to auscultation bilaterally Cardio: Rate: regular rate GI: Inspection: non-distended GI Palp: Yes Soft to palpation, No Firmness to palpation present (GI), Yes Tenderness to palpation present (GI) (mild tenderness over incision ) and No Guarding due to palpation present (GI) Auscultation: normal bowel sounds Psych: Appearance: grossly normal Mental Status: mental status grossly normal DS: Data Data Completed and Pending Pending studies at discharge: Pending at discharge 04/06/21 09:30 Surgical [PTH] Routine Labs on day of discharge: Labs from last 24 hours 04/07/21 04/06/21 03:32 07:39 WBC 7.6 RBC 2.92 L Hgb 7.9 L D Hct 24.8 L MCV 84.9 MCH 27.1 MCHC 31.9 L RDW 14.0 Plt Count 184 MPV 11.5 H Immature Gran % (Auto) 0.3 Neut % (Auto) 75.3 H Lymph % (Auto) 15.1 L [place] % (Auto) 8.7 H Eos % (Auto) 0.5 Baso % (Auto) 0.1 L Lymph # (Auto) 1.15 [place] # (Auto) 0.7 H Eos # (Auto) 0.0 Baso # (Auto) 0.0 Abs Immat Gran (auto) 0.02 Absolute Neuts (auto) 5.7 Absolute Nucleated RBC 0.0 Nucleated RBC % 0.0 Rubella IgG Antibody 76.8 Discharge Plan Discharge Attending physician on discharge: Herberth Lal Discharging Clinician: Jose Armando Saravia Patient Disposition: Home, Self-Care Activity: as tolerated and pelvic rest Diet: regular Wound Care Instructions: follow printed instructions Discharge Instructions: Education: Mom and Baby Guide Given to: Mother Follow-Up: Call your delivering provider's office for an appointment to be seen in: 1 Week Mom and baby [facility] for the follow-up appointment. Appointment Date/Time: April 10, 2021 at 8:00 am What to expect at your follow-up visit: Blood Pressure Check Physical Assessment Call [phone] if you are unable to keep your appointment time. BREAST CARE: * Wear a snug supportive bra. * For engorgement discomfort: Breast Feeding: * Apply warm moist washcloths * Express milk as needed to relieve engorgement * Wear loose clothing * For sore nipples: * Identify correct latch-on * Apply warm moist washcloths before and after nursing * Air dry nipples after nursing * May apply Lansinoh cream to nipples ABDOMINAL INCISION: (if applicable) * Allow incision to air dry * Do NOT use lotions for powders on your incision * When showering, allow soap and water to run over the incision, but do not wash incision EPISIOTOMY/PERINEAL CARE: * Until bleeding stops, use your ramos bottle after urinating * Change your pad frequently throughout the day * No tub baths until seen by your physician - You may shower ACTIVITY: * Rest as much as possible. * Do not exercise or lift anything heavier than your baby (such as laundry or other children.) * Avoid stairs or driving as much as possible. * Do not put anything into the vagina. No douching, tampons, or sexual activity until seen by physician. NOTIFY PHYSICI
--- NOTE | 2021-04-07 08:54 | WPDANLDPN2 ---
Anes-Prog Note L&D Date/Time: 04/07/21 08:54 Comfortable throughout: section Neuraxial method: spinal Epidural/Spinal procedure site: clean & non-tender Neuro status: Neuro function grossly intact. Cardiovascular status: normal Respiratory status: normal Airway patency: baseline Mental status: baseline Post-Op hydration status: normal Vital Signs: Last Vital Signs Temp 36.5 C 04/07/21 03:41 Pulse 91 04/07/21 03:41 Resp 18 04/07/21 03:41 BP 133/68 04/07/21 03:41 Pulse Ox 99 04/07/21 03:41 Pain score (VAS): 10/02 I/O: Intake & Output 04/06/21 04/07/21 04/07/21 23:59 07:59 15:59 Intake Total 600 Output Total 300 Balance 300 Post-procedural complaints: none Patient feedback: Patient satisfied with anesthetic care.
--- NOTE | 2021-04-07 08:54 | WPDANLDNPN2 ---
Anes-Prog Note L&D-Neuraxial Date/Time: 04/07/21 08:54 Neuraxial medications: intrathecal PF morphine Opiod-related complaints: none Patient feedback: Patient satisfied with post-operative pain management.
[2021-04-07 10:10] VITALS: BP 136/74; PULSE 82; RESP 18; TEMP 35.6; O2SAT 100
--- NOTE | 2021-04-07 10:10 | PC.NURSE ---
Consult with pt., mother reports is now in Level II status. Mother states infant had a few good attempts with latching. Mother does not believe infant's tongue is impacting latch she feels it is the congestion. Mother continues to pump as required without difficulties or discomfort. Requested mother call out if she is able to put to breast.
[2021-04-07] MEDS: MULTIVIT/MIN/PREN/FOL AC/IRON TABLET 1 TAB PO (10:16)
[2021-04-07] MEDS: POLYSACCHARIDE IRON COMPLEX 150 MG CAPSULE PO (10:16)
[2021-04-07] MEDS: DOCUSATE SODIUM 100 MG CAPSULE PO (10:16)
[2021-04-07 13:10] VITALS: PULSE 82; RESP 18; O2SAT 100
== END 2021-04-07 13:40 | disposition home or self-care (01) | DRG 787 ==
LOC: ANHOB2 04-07 13:17 → ANHLDR 04-10 12:11 → ANHOB2 04-10 12:11
PROVIDERS: Admitting Provider Student in an Organized Health Care Education/Training Program; PCP Family Medicine; Visit Provider Obstetrics & Gynecology
PROC: 10D00Z1 Extraction of Products of Conception, Low, Open Approach (ICD-10-PCS; CPT 59514; principal; 2021-04-06 09:00)
DX: O34.211 Maternal care for low transverse scar from previous cesarean delivery (principal); O10.92 Unspecified pre-existing hypertension complicating childbirth; Z37.0 Single live birth; Z3A.38 38 weeks gestation of pregnancy; O99.214 Obesity complicating childbirth; E66.01 Morbid (severe) obesity due to excess calories
CPT/HCPCS: 36415; 85025; 85027; 86592; 86762; 86850; 86900; 86901; 88307; A9270; J0131; J0690; J1885; J2270; J2274; J2590; J3480; J7120

== ENCOUNTER 2021-04-08 10:11 | Outpatient (CLI) | payer BC, SELFPAY ==
[2021-04-08 10:34] LABS: Hematocrit 25.3 % (37.0-47.0); Hemoglobin 8.1 g/dL (12.0-15.0); Mean Corpuscular Hemoglobin 26.8 pg (26-34); Mean Corpuscular Volume 83.8 fl (80-100); Mean Platelet Volume 10.5 fl (7.4-10.4); Platelet Count Result 217 k/mm3 (150-375); Red Blood Count 3.02 M/mm3 (4.2-5.4); Red Cell Distribution Width 14.1 % (11.5-14.5)
== END 2021-04-08 10:12 | disposition home or self-care (01) ==
PROVIDERS: PCP Family Medicine; Visit Provider Student in an Organized Health Care Education/Training Program
DX: I10 Essential (primary) hypertension (principal)
CPT/HCPCS: 36415; 85027

== ENCOUNTER 2022-02-01 17:33 | Observation (INO) | payer BC, SELFPAY ==
--- NOTE | 2022-02-01 13:49 | PM.IMHP ---
H&P: HPI History of Present Illness Date/Time: 02/01/22 13:49 Chief Complaint: abnormal uterine bleeding acute blood loss anemia Narrative: 31 yo who presents with abnormal uterine bleeding. PT has been dealing with heavy vaginal bleeding since the delivery of her last child. Pt has continued to bleed despite continuous fashion contraceptive pill use. Pt presented to the emergency room in November for heavy bleeding and was found to be anemia requiring transfusion. Pt had her blood drawn last week for increased bleeding and fatigue. Hgb returned 6.2. Review of Systems Cardiovascular: Cardiovascular: Denies chest pain, Denies leg edema, Denies palpitations, Denies dyspnea and Denies dyspnea on exertion Respiratory: Respiratory: Denies cough, Denies dyspnea and Denies dyspnea on exertion Gastrointestinal: Gastrointestinal: Denies abdominal pain, Denies constipation, Denies diarrhea, Denies nausea and Denies vomiting Genitourinary: Genitourinary: Denies hematuria, Denies urinary frequency, Denies dysuria, Denies pelvic pain, Denies urinary incontinence and Denies vaginal discharge Neurologic: Reports system reviewed and no additional complaints, except as documented Psychiatric: Psychiatric: Reports no additional psychiatric complaints Endocrine: Endocrine: Denies palpitations [facility] Past Medical History Medical History (Updated 02/01/22 @ 13:53 by Herberth Lal MD) HTN (hypertension) Morbid obesity with BMI of 40.0-44.9, adult Family History Family History Father Lung cancer Social History Social History Smoking status: Never smoker Second hand tobacco smoke exposure: No Substance use: never Gender identity (if verbalized by the patient): Female Spiritual care concerns: No Meds Home Medications and Allergies Home Medications Medication Instructions Recorded Confirmed Type PNV cmb#95-ferrous fumarate-FA 1 tablet PO DAILY 11/06/19 03/02/21 History [] acetaminophen [Mapap 650 mg PO Q6H PRN #30 tablet 04/07/21 Rx (acetaminophen)] docusate sodium 100 mg PO BID #30 cap 04/07/21 Rx hydrocodone-acetaminophen 1 tablet PO Q6H PRN #28 tablet 04/07/21 Rx ibuprofen 600 mg PO Q6H PRN #30 tablet 04/07/21 Rx polysaccharide iron complex 150 mg PO BIDWM #60 cap 04/07/21 Rx Allergies Allergy/AdvReac Type Severity Reaction Status Date / Time No Known Allergies Allergy Unverified 09/24/18 15:42 Exam Const: General: no acute distress Eyes: EOM: EOMs intact bilaterally Neck: Neck: supple Thyroid: thyroid normal Chest: Breast/axilla inspection: normal inspection of the breasts Breast/axilla palpation: normal palpation of the breasts, normal palpation of the axillae and no axillary lymphadenopathy Resp: Effort & Inspection: normal respiratory effort Auscultation: clear to auscultation bilaterally Cardio: Rate: regular rate Rhythm: regular rhythm GI: Inspection: non-distended GI Palp: Yes Soft to palpation, No Tenderness to palpation present (GI) and No Guarding due to palpation present (GI) Auscultation: normal bowel sounds : General: No bladder normal to palpation External Female Exam: normal external appearance Speculum Exam - Vagina: normal vaginal discharge and No vaginal bleeding Speculum Exam - Cervix: nontender Bimanual exam- vagina & uterus: No bladder normal to palpation and No Cervical tenderness present OB/external & speculum: No vaginal bleeding Skin: General skin exam: normal color and no rashes or lesions noted Neuro: Cognition (Neuro): normal cognition Speech: normal speech Extrem: General: normal to inspection and no edema Psych: Mental Status: mental status grossly normal Affect: normal affect Assessment and Plan Assessment and plan (1) Abnormal uterine bleeding (AUB): Code(s): N93.9 - Abnormal uterine and vaginal bleeding, unspecified Status: Acute Assessment an
--- NOTE | 2022-02-01 17:50 | PC.NURSE ---
Patient transferred to post room #278 ambulatory. Support person present. Oriented to unit, room, information board. Patient verbalizes understanding.
[2022-02-01 18:00] VITALS: BP 143/82; PULSE 90; RESP 20; TEMP 36.4; O2SAT 100
[2022-02-01 18:30] VITALS: BMI 40.5
[2022-02-01 19:10] VITALS: BP 121/70; PULSE 81; RESP 18; TEMP 37.4
[2022-02-01 19:25] LABS: Pregnancy On Board Control Positive; Urine Pregnancy Test Negative
[2022-02-01] MEDS: SODIUM CHLORIDE 0.9% IV 250 ML 30 ML IV CONT (21:05)
--- NOTE | 2022-02-01 21:05 | PC.NURSE ---
Blood drawn for H/H level prior to transfusion.
[2022-02-01] MEDS: ACETAMINOPHEN 325 MG TABLET 650 MG PO (21:11)
[2022-02-01] MEDS: diphenhydrAMINE HCl INJ 50 MG/ML VIAL 25 MG IV PUSH (21:12)
[2022-02-01 21:30] VITALS: BP 139/81; PULSE 85; RESP 18; TEMP 36.6
[2022-02-01 21:30] LABS: Hemoglobin 5.5 g/dL (12.0-15.0)
[2022-02-01 21:31] LABS: Hematocrit 20.5 % (37.0-47.0)
[2022-02-01 21:50] VITALS: BP 143/78; PULSE 85; RESP 18; TEMP 37.8
[2022-02-01 22:05] VITALS: BP 140/69; PULSE 79; RESP 18; TEMP 37.6
[2022-02-01 23:05] VITALS: BP 135/69; PULSE 82; RESP 18; TEMP 36.8
[2022-02-02] VITALS (15 sets, daily range): BP systolic 119–168; BP diastolic 56–85; PULSE 63–94; RESP 16–20; TEMP 36.2–37.7; O2SAT 99–100
[2022-02-02 05:35] LABS: Hematocrit 26.2 % (37.0-47.0); Hemoglobin 7.7 g/dL (12.0-15.0); Mean Corpuscular HGB Conc 29.4 g/dl (32-36); Mean Corpuscular Hemoglobin 21.1 pg (26-34); Mean Corpuscular Volume 71.8 fl (80-100); Platelet Count Result 307 k/mm3 (150-375); Red Blood Count 3.65 M/mm3 (4.2-5.4); White Blood Count 3.4 K/mm3 (4.5-10.0)
--- NOTE | 2022-02-02 08:00 | PC.NURSE ---
PT introductions made and plan of care discussed per shop and alteration tailor bleeding and scheduled D&C, pain management, daily care activities and pending discharge to home after surgery, PT received such instructions as sole recipient and no barriers to learning identified at this time. PT received such instructions per one to one discussion and demonstrations. Pt verbalized understanding of such care.
[2022-02-02] MEDS: LACTATED RINGERS 1,000 ML 125 ML IV CONT (09:15)
--- NOTE | 2022-02-02 11:12 | WPDHPUPDATE1 ---
History and Physical Update Update Date/Time: 02/02/22 11:12 History and Physical has been reviewed, including an updated exam of the patient. There are NO changes in the patient's condition. Risks, benefits, and alternatives have been discussed and questions answered. Patient agrees to proceed with procedure.
--- NOTE | 2022-02-02 12:20 | PC.NURSE ---
To OR via wheelchair
[2022-02-02] MEDS: LACTATED RINGERS 1,000 ML 30 ML IV CONT ×2 (12:49→14:07)
--- NOTE | 2022-02-02 13:10 | WPDANESEPPF ---
Anes - Initial Pre Proc Eval Procedure: Operation Date: 02/02/22 13:30 Proposed Procedures p Hysteroscopy Dilation and Curettage - Herberth Lal MD Date/Time: 02/02/22 13:10 Surgeon: Herberth Lal MD Pre Op Diagnosis: excessive bleeding/ blood transfusion Patient Data Age: 31 Gender: F Height: 1.65 m Weight: 110.4 kg Last Vital Signs Temp 98 F 02/02/22 12:47 Pulse 80 02/02/22 12:47 Resp 18 02/02/22 12:47 BP 168/84 H 02/02/22 12:47 Pulse Ox 99 02/02/22 12:47 Allergies Allergy/AdvReac Type Severity Reaction Status Date / Time No Known Allergies Allergy Unverified 09/24/18 15:42 Home Medications Medication Instructions Recorded Confirmed Type acetaminophen [Mapap 650 mg PO Q6H PRN #30 tablet 04/07/21 02/01/22 Rx (acetaminophen)] ibuprofen 600 mg PO Q6H PRN #30 tablet 04/07/21 02/01/22 Rx doxycycline hyclate 40 mg PO DAILY 02/01/22 02/01/22 History ferrous sulfate [Iron (ferrous 325 mg PO DAILY 02/01/22 02/01/22 History sulfate)] medroxyprogesterone 10 mg PO DAILY 02/01/22 02/01/22 History naltrexone-bupropion [Contrave] 2 tablet PO BID 02/01/22 02/01/22 History Laboratory Tests 02/01/22 02/01/22 02/01/22 18:52 19:01 21:05 WBC RBC Hgb 5.5 g/dL L* g/dL (12.0-15.0) Hct 20.5 % L* % (37.0-47.0) MCV MCH MCHC RDW Plt Count MPV Urine Test Negative Blood Type O Positive Antibody Screen Negative Crossmatch See Detail 02/02/22 05:10 WBC 3.4 K/mm3 L K/mm3 (4.5-10.0) RBC 3.65 M/mm3 L M/mm3 (4.2-5.4) Hgb 7.7 g/dL L g/dL (12.0-15.0) Hct 26.2 % L % (37.0-47.0) MCV 71.8 fl L fl (80-100) MCH 21.1 pg L pg (26-34) MCHC 29.4 g/dl L g/dl (32-36) RDW 19.0 % H % (11.5-14.5) Plt Count 307 k/mm3 k/mm3 (150-375) MPV 10.0 fl fl (7.4-10.4) Urine Test Blood Type Antibody Screen Crossmatch Patient hx anesthesia problems: none Family hx anesthesia problems: none Results Review: All pre-operative results and documents have been reviewed as part of the pre-operative evaluation. [facility] Past Medical History Medical History (Updated 02/01/22 @ 13:53 by Herberth Lal MD) HTN (hypertension) Morbid obesity with BMI of 40.0-44.9, adult Family History Family History Father Lung cancer Social History Social History Smoking status: Never smoker Second hand tobacco smoke exposure: No Alcohol intake: current Substance use: never Gender identity (if verbalized by the patient): Female Spiritual care concerns: No Anes - Eval Final PreProcedure Day of Procedure 02/02/22 13:10 Patient weight: morbidly obese Heart: regular rate and rhythm Lungs: clear to auscultation Airway: Mallampati scale class III Neurological: alert and oriented Last oral intake: >/= 8 hours ASA classification: III Emergent: no Anesthetic plan: proceed Anesthesia type and monitoring: general GIVS (may use LMA) and standard monitoring Results Review: All pre-operative results and documents have been reviewed as part of the pre-operative evaluation. Informed Consent: The patient's anesthetic plan and its attendant risks and benefits were discussed with the patient/family/POA. Questions were solicited and answers provided to the satisfaction of the patient/family/POA.
--- NOTE | 2022-02-02 13:56 | W.PM.PROC2 ---
Procedure Note - Detailed Date of Procedure 02/02/22 Pre-op Diagnosis excessive bleeding/ blood transfusion Post-op Diagnosis Same Procedure Performed paracervical block hysteroscopy dilation & curettage insertion of IUD Surgeon Herberth Lal MD Indications abnormal uterine bleeding Findings globally thickened endometrium. Normal tubal ostia bilaterally Description of Procedure Pricilla Shaffer presents for hysteroscopy, D&C, insertion of IUD for AUB. She was counseled as to the indications, risks, benefits, and alternatives to surgery, with the risks including bleeding, infection, damage to surrounding organs, VTE, and complications of anesthesia. Her verbal and written consent was obtained. PROCEDURE: The patient was taken to the OR and general anesthesia induced. She was prepped and draped in Larry stirrups with support of the back and bilateral lower extremities. I/O catheterization performed of the bladder. The above findings were noted. Infiltration with 1% lidocaine at the 3 and 9 o'clock cervical positions was performed. A single tooth tenaculum was placed on the anterior lip of the cervix. The cervix was dilated with sequential Marylin dilators. Hysteroscopy, using a normal saline medium, was performed and showed the above findings. Sharp uterine curettage was then performed and tissue placed on Telfa. The Mirena IUD device was then opened and placed. The IUD strings were trimmed 2 cm from the os. The tenaculum was removed and hemostasis was observed. The patient tolerated the procedure well. Sponge, lap, and needle counts were correct. The patient was taken to the recovery room in stable condition. Urine Output 10 Drains No Packing No Pathology Yes (endometrial curettings ) Complications No immediate complications Condition Stable Disposition PACU
[2022-02-02] MEDS: fentaNYL CITRATE INJ (*CRX) 100 MCG/2 ML VIAL 25 MCG IV PUSH ×3 (14:17→14:27)
--- NOTE | 2022-02-02 15:00 | PC.NURSE ---
PT arrived on unit post D&C on stretcher unaccompanied and alert and awake. PT walked from stretcher to bathroom with out difficulty. PT discussed plan of care and pending discharge to home. Assessment done and pt able to be oob ambulatory ad samra. PT verbalized understanding of such care.
[2022-02-02] MEDS: ACETAMINOPHEN 325 MG TABLET 650 MG PO (15:15)
[2022-02-02] MEDS: IBUPROFEN 600 MG TABLET PO (15:16)
[2022-02-02] MEDS: POLYSACCHARIDE IRON COMPLEX 150 MG CAPSULE PO (17:18)
--- NOTE | 2022-02-02 18:00 | PC.NURSE ---
PT discharged to home ambulatory to waiting car. Follow up appts confirmed
--- NOTE | 2022-02-02 18:00 | PC.NURSE ---
Pt received discharge instructions per protocol and verbalized understanding of such care.
--- NOTE | 2022-02-07 09:13 | PM.DS ---
DS: Admitting Diagnosis Discharge Date 02/02/22 Admitting Diagnosis abnormal uterine bleeding anemia DS: Summary Hospital Course Hospital Course: 31 yo female who presented with anemia requiring transfusion secondary to abnormal uterine bleeding. Pt presented for blood transfusion and then underwent hysteroscopy, D&C, and placement of IUD for AUB. Status at Discharge Functional status at discharge: independent ambulation Overall status at discharge: patient is back to baseline Time Spent with Patient Time attestation: Total time spent providing and/or coordinating discharge services: Time spent: Less than 30 minutes Exam Const: General: cooperative and healthy appearing Nutritional Appearance: obese Resp: Effort & Inspection: normal respiratory effort and able to speak in complete sentences Cardio: Rate: regular rate Rhythm: regular rhythm GI: Inspection: normal to inspection GI Palp: No abdominal tenderness Skin: General skin exam: normal color Extrem: General: normal to inspection and full ROM Psych: Appearance: grossly normal Mental Status: mental status grossly normal Speech and movement: Normal speech and movement present DS: Data Data Completed and Pending Completed studies during hospitalization: Pending at discharge 02/02/22 13:52 Surgical [PTH] Routine Discharge Plan Discharge Discharging Clinician: Herberth Lal Patient Disposition: Home, Self-Care Activity: as tolerated and pelvic rest Diet: regular Patient Instructions: Dilation and Curettage (DC) Stand Alone Forms: General Discharge Information Follow-up/Referrals: Herberth Lal MD [Physician] - 1 Week Discharge Medications: Continued acetaminophen [Mapap (acetaminophen)] 325 mg Tablet 650 mg PO Q6H PRN (Reason: Mild Pain (1-3)) Qty: 30 RF: 0 ibuprofen 600 mg Tablet 600 mg PO Q6H PRN (Reason: Cramping) Qty: 30 RF: 0 medroxyprogesterone 10 mg tablet 10 mg PO DAILY RF: 0 doxycycline hyclate 20 mg tablet 40 mg PO DAILY RF: 0 Contrave 8-90 mg tablet extended release 2 tablet PO BID RF: 0 ferrous sulfate [Iron (ferrous sulfate)] 325 mg (65 mg iron) Tablet 325 mg PO DAILY RF: 0 Date of admission: 02/01/22 17:33 Primary Care Provider: Rayray,Myles Harris Admitting Provider: Herberth Lal Attending physician on admission: Herberth Lal Condition: Stable
== END 2022-02-02 18:00 | disposition home or self-care (01) ==
PROVIDERS: Admitting Provider Student in an Organized Health Care Education/Training Program; PCP Family Medicine; Visit Provider Student in an Organized Health Care Education/Training Program
PROC: 0U5B8ZZ Destruction of Endometrium, Via Natural or Artificial Opening Endoscopic (ICD-10-PCS; CPT 58563; principal; 2022-02-02 13:30)
DX: N93.9 Abnormal uterine and vaginal bleeding, unspecified (principal); D62 Acute posthemorrhagic anemia; I10 Essential (primary) hypertension; E66.01 Morbid (severe) obesity due to excess calories; Z68.41 Body mass index [BMI] 40.0-44.9, adult
CPT/HCPCS: 58558; 58300; 36415; 36430; 81025; 85014; 85018; 85027; 86850; 86900; 86901; 86920; 88305; 96361; 96374; A9270; G0378; G0379; J1200; J2250; J2405; J2704; J3010; J7030; J7050; J7120; P9016